=== PATIENT | male | born 1945 | race Caucasian/White ===

== ENCOUNTER 2020-07-16 06:31 | Day surgery (SDC) | payer MEDICARE ==
[2020-07-16] MEDS ORDERED: BUPIVACAINE 0.5% VIAL IJ ONE (06:32)
[2020-07-16] MEDS ORDERED: Decadron 4 MG INJ IV ONE (06:32)
[2020-07-16] MEDS ORDERED: Ketamine HCl 50 MG/ML ONE (07:54)
[2020-07-16] MEDS ORDERED: DIPRIVAN 200 MG/20 ML IV ONE (07:54)
[2020-07-16] MEDS ORDERED: Lactated Ringers 1,000 ML IV ONE (14:30)
--- NOTE | 2020-07-17 15:44 | XRAY ---
Indication: Right C2-C4 MBB. Intraoperative fluoroscopy provided for 16 seconds. 2 digital spot images submitted for interpretation demonstrates posterior needle tips projecting over the expected right C2-C4 nerve roots. Correlate with intraoperative findings/report.
--- NOTE | 2020-07-17 15:44 | XRAY ---
16 seconds fluoroscopy time in surgery for right C2-C4 MBB.
== END 2020-07-16 08:38 | disposition home or self-care (01) ==
LOC: SDC-PAIN 06:31
PROVIDERS: ATTEND Psychiatry & Neurology Pain Medicine
DX: M47.812 Spondylosis without myelopathy or radiculopathy, cervical region (principal); I10 Essential (primary) hypertension; K21.9 Gastro-esophageal reflux disease without esophagitis; Z79.899 Other long term (current) drug therapy
CPT/HCPCS: 64490; 64491; 72020; 77002; J1100; J2704

== ENCOUNTER 2020-09-02 02:26 | Observation (INO) | payer MEDICARE ==
[2020-09-02 02:55] LABS: Absolute Neutrophil Ct (ANC) 15.26 (1.4-6.9); BASOPHIL % 0.2 % (0.0-0.4); Basophil (Absolute #) 0.04 (0-0.4); Eosinophil % 0.5 % (0.00-5.0); Eosinophil (Absolute #) 0.08 (0-0.5); Hematocrit 42.7 % (42-50); Hemoglobin 13.9 gm/dl (12.5-18.0); Lymphocyte (Absolute #) 0.98 (1.0-4.6); Lymphocytes % 5.7 % (24.0-44.0); Mean Cell Volume 87.5 fl (78-100); Mean Corpuscular Hemoglobin 28.5 pg (26-32); Mean Corpuscular Hgb Concent. 32.6 g/dl (32-36); Mean Platelet Volume 10.9 fl (7.5-11.0); Monocyte (Absolute #) 0.71 (0.0-1.3); Monocytes % 4.2 % (0.0-12.0); Neutrophil % 89.4 % (36.0-66.0); Platelet Count 230 K/mm3 (150-450); Red Blood Count 4.88 M/mm3 (4.1-5.6); Red Cell Distribution Width 13.4 % (11.5-14.0); White Blood Count 17.1 K/mm3 (4.0-10.5)
[2020-09-02] MEDS ORDERED: SUBLIMAZE 100 MCG/2 ML IV ONE (02:55)
[2020-09-02] MEDS ORDERED: Zofran 4 MG/2 ML VIAL ONE (02:56)
[2020-09-02] MEDS ORDERED: Zofran 4 MG/2 ML VIAL IV ONE (02:56)
[2020-09-02 02:57] LABS: Appearance SLIGHTLY CLOUDY (CLEAR); Bilirubin NEGATIVE (NEGATIVE); Blood NEGATIVE Ery/ul (0-5); Glucose NEGATIVE (NEGATIVE); Ketones SMALL (NEGATIVE); Leukocyte Esterase NEGATIVE (NEGATIVE); Mucus SLIGHT /HPF (NEGATIVE); Nitrite NEGATIVE (NEGATIVE); Protein,Urine Dip 30 (Negative); Specific Gravity 1.023 (1.005-1.025); Urobilinogen 2 mg/dL (0-1)
[2020-09-02] MEDS ORDERED: Sodium Chloride 0.9% 1000 ML 1,000 ML ONE (02:58)
[2020-09-02] MEDS ORDERED: SUBLIMAZE 100 MCG/2 ML ONE (02:58)
--- NOTE | 2020-09-02 03:02 | ERPHSYRPT ---
- History of Present Illness Historian: patient Patient Subjective Stated Complaint: Patient states " I started having pretty bad ABD pain yesterday around 1600. I have tried tums and some alkaseltzer and it chavarria't helped with the pain and now I am just miserable". Triage Nursing Assessment: . Physician History: 75 yo wm w diffuse abdominal pain x 11hrs. Pain is 7/10 but has been up to a 10. He feels distended and describes the pain as a fullness. Pt has been nauseated and has vomited x4. He denies chest pain/diarrhea/hematemesis/melena/hematochezia/dysuria/hematuria. Timing/Duration: other (11hrs) Quality: fullness Abdominal Pain Onset Location: generalized abdomen Pain Radiation: no radiation, shoulder Severity of Pain-Current: severe Modifying Factors: Improves With: nothing Associated Symptoms: loss of appetite, nausea, vomiting, other, No back, No chest pain, No diaphoresis, No diarrhea, No fever/chills, No fatigue, No headache, No heartburn, No neck pain, No rash, No shortness of breath, No syncope, No testicular pain, No weakness Previous symptoms: no prior history Allergies/Adverse Reactions: No Known Drug Allergies Allergy (Unverified 09/02/20 03:09) Home Medications: PANTOPRAZOLE 40 mg Tablet [Protonix 40MG Tablet] 40 mg PO DAILY 09/02/20 [History] lisinopriL [Lisinopril] 5 mg PO DAILY 09/02/20 [History] Hx Tetanus, Diphtheria Vaccination/Date Given: Yes Hx Influenza Vaccination/Date Given: Yes Hx Pneumococcal Vaccination/Date Given: Yes Immunizations Up to Date: Yes Travel Risk - International Travel Have you traveled outside of the country in past 3 weeks: No - Coronavirus Screening Are you exhibiting any of the following symptoms?: No Close contact with a COVID-19 positive Pt in past 14-21 Days: No - Vaccine Status Have you recieved a Covid-19 vaccination: Yes 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 - Vaccination Dates Date of 2cond Vaccination (if applicable): 06/16/20 - Review of Systems Constitutional: No Symptoms, Chills Eyes: No Symptoms Ears, Nose, & Throat: No Symptoms Respiratory: No Symptoms, Cough Cardiac: No Symptoms Abdominal/Gastrointestinal: Abdominal Pain, Nausea, Vomiting, Appetite Changes, No Diarrhea, No Constipation, No Hematemesis, No Hematochezia, No Melena, No Dysphagia Genitourinary Symptoms: No Symptoms Musculoskeletal: No Symptoms Skin: No Symptoms Neurological: No Symptoms Psychological: No Symptoms Endocrine: No Symptoms Hematologic/Lymphatic: No Symptoms Immunological/Allergic: No Symptoms - Past Medical History Neurological History: No Pertinent History ENT History: Cataracts Cardiac History: Hypertension Respiratory History: Bronchitis, COPD Endocrine Medical History: No Pertinent History Musculoskeletal History: Arthritis GI Medical History: GERD History: No Pertinent History Psycho-Social History: No Pertinent History Male Reproductive Disorders: No Pertinent History - Past Surgical History Past Surgical History: Yes Neuro Surgical History: No Pertinent History Cardiac: No Pertinent History Respiratory: No Pertinent History Gastrointestinal: Hernia Repair Genitourinary: No Pertinent History Musculoskeletal: Orthopedic Surgery Male Surgical History: No Pertinent History - Social History Smoking Status: Former smoker Exposure to second hand smoke: No Drug Use: none Patient Lives Alone: No Significant Family History: no pertinent family hx - Nursing Vital Signs Nursing Vital Signs: Initial Vital Signs Temperature 98.0 F 09/02/20 02:35 Pulse Rate 57 L 09/02/20 02:35 Respiratory Rate 18 09/02/20 02:35 Blood Pressure 146/88 09/02/20 02:35 O2 Sat by Pulse Oximetry 99 09/02/20 02:35 Pain Scale Pain Intensity 1 - Physical Exam General Appearance: mild distress Eye Exam: PERRL/EOMI, eyes nml inspection Ears, Nose, Throat Exam: normal ENT inspection, TMs normal, pharynx normal, mo ist mucous membranes Neck Exam: normal inspection, non-tender, supple, full range of motion, No meningismus, No mass, No Brudzinski, No Kernig's, No carotid bruit Respiratory Exam: normal breath sounds, airway intact, No lungs clear, No respiratory distress Cardiovascular Exam: regular rate/rhythm, normal heart sounds, normal peripheral pulses, No murmur Gastrointestinal/Abdomen Exam: soft, tenderness (Diffuse ttp/Greatest RLQ/No guarding/No rebound) Back Exam: normal inspection, normal range of motion, CVA tenderness Extremity Exam: normal inspection, normal range of motion Neurologic Exam: alert, oriented x 3, cooperative, margin trimmer II-XII nml as tested, normal mood/affect, nml station & gait, sensation nml, No motor deficits, No sensory deficit Skin Exam: normal color, warm, dry, No rash Lymphatic Exam: No adenopathy SpO2 Interpretation: normal SpO2: 99 O2 Delivery: Room Air - Course Nursing assessment & vital signs reviewed: Yes EKG Interpreted by Me: RATE (Sinus Isael/R55/Prolonged QT/Poor R wave progression V2-V3/No acute ST changes) Ordered Tests: Active Orders 24 hr Category Date Time Status Bedrest ROUTINE Activity 09/02/20 05:23 Ordered Code Status Order ROUTINE Care 09/02/20 05:22 Ordered EKG-ER Only STAT Care 09/02/20 02:42 Active Fall Protocol ROUTINE Care 09/02/20 05:23 Ordered IV Care Q6H Care 09/02/20 05:22 Ordered Vital Signs Q4H Care 09/02/20 05:22 Ordered Consult Surgery ROUTINE Cons 09/02/20 05:22 Ordered NPO Diet 09/02/20 05:23 Ordered ABDOMEN AND PELVIS W/0 CONTRAS [CT] Stat Exams 09/02/20 03:33 Taken AMYLASE Stat Lab 09/02/20 02:50 Completed CBC W DIFF Stat Lab 09/02/20 02:50 Completed CMP Stat Lab 09/02/20 02:50 Completed LIPASE Stat Lab 09/02/20 02:50 Completed Lactic Acid Stat Lab 09/02/20 02:49 Completed Lactic Acid Stat Lab 09/02/20 04:52 Received TROPONIN Q3H Lab 09/02/20 02:50 Completed TROPONIN Q3H Lab 09/02/20 05:45 Ordered TROPONIN Q3H Lab 09/02/20 08:45 Ordered TROPONIN Q3H Lab 09/02/20 11:45 Ordered TROPONIN Q3H Lab 09/02/20 14:45 Ordered UA W/RFX UR CULTURE Stat Lab 09/02/20 02:53 Completed Transfer Order Routine Transfer 09/02/20 Ordered Medication Summary Generic Name Dose Route Start Last Admin Trade Name Freq PRN Reason Stop Dose Admin Hydromorphone HCl 0.5 mg 09/02/20 05:22 Hydromorphone 1 Mg/Ml Injection IV 09/07/20 05:21 Q4H PRN PRN PAIN Sodium Chloride 1,000 mls @ 100 mls/hr 09/02/20 05:30 Sodium Chloride 0.9% 1000 Ml IV 10/02/20 05:29 .Q10H ROSALVA Ondansetron HCl 4 mg 09/02/20 05:22 Zofran 4 Mg/2 Ml Vial IV 10/02/20 05:21 Q6H PRN PRN NAUSEA/VOMITING Pantoprazole Sodium 40 mg 09/02/20 10:00 Protonix 40 Mg Iv IV 10/02/20 09:59 Q24H10 ROSALVA Discontinued Medications Generic Name Dose Route Start Last Admin Trade Name Freq PRN Reason Stop Dose Admin Fentanyl Citrate 50 mcg 09/02/20 02:55 09/02/20 03:11 Sublimaze 100 Mcg/2 Ml IV 09/02/20 02:56 50 mcg STAT ONE Administration Fentanyl Citrate Confirm 09/02/20 02:58 Sublimaze 100 Mcg/2 Ml Administered 09/02/20 02:59 Dose 100 mcg .ROUTE .STK-MED ONE Sodium Chloride Confirm 09/02/20 02:58 Sodium Chloride 0.9% 1000 Ml Administered 09/02/20 02:59 Dose 1,000 mls @ ud .ROUTE .STK-MED ONE Sodium Chloride 1,000 mls @ 999 mls/hr 09/02/20 03:13 09/02/20 03:14 Sodium Chloride 0.9% 1000 Ml IV 09/02/20 04:13 999 mls/hr .Q1H1M STA Administration Ondansetron HCl 4 mg 09/02/20 02:56 09/02/20 03:12 Zofran 4 Mg/2 Ml Vial IV 09/02/20 02:57 4 mg STAT ONE Administration Ondansetron HCl Confirm 09/02/20 02:56 Zofran 4 Mg/2 Ml Vial Administered 09/02/20 02:57 Dose 4 mg .ROUTE .STK-MED ONE Lab/Rad Data: Laboratory Result Diagrams 09/02/20 02:50 09/02/20 02:50 Laboratory Results 09/02/20 09/02/20 09/02/20 Range/Units 02:53 02:50 02:50 WBC (4.0-10.5) K/mm3 RBC (4.1-5.6) M/mm3 Hgb (12.5-18.0) gm/dl Hct (42-50) % MCV (78-100) fl MCH (26-32) pg MCHC (32-36) g/dl RDW (11.5-14.0) % Plt Count (150-450) K/mm3 MPV (7.5-11.0) fl Gran % (36.0-66.0) % Eos # (Auto) (0-0.5) Absolute Lymphs (auto) (1.0-4.6) Absolute Monos (auto) (0.0-1.3) Lymphocytes % (24.0-44.0) % Monocytes % (0.0-12.0) % Eosinophils % (0.00-5.0) % Basophils % (0.0-0.4) % Absolute Granulocytes (1.4-6.9) Basophils # (0-0.4) Sodium 138 (137-145) mmol/L Potassium 4.0 (3.5-5.1) mmol/L Chloride 101 (98-107) mmol/L Carbon Dioxide 27 (22-30) mmol/L Anion Gap 14.0 (5-15) MEQ/L BUN 34 H (9-20) mg/dL Creatinine 1.68 H (0.66-1.25) mg/dL Estimated GFR 42.3 ML/MIN Glucose 143 H (74-106) mg/dL Lactic Acid (0.4-2.0) Calcium 9.9 (8.4-10.2) mg/dL Total Bilirubin 1.30 (0.2-1.3) mg/dL AST 26 (17-59) U/L ALT 17 (0-50) U/L Alkaline Phosphatase 138 H (38-126) U/L Troponin I < 0.012 (0.000-0.034) ng/mL Serum Total Protein 7.0 (6.3-8.2) g/dL Albumin 4.5 (3.5-5.0) g/dL Amylase 46 (30-110) U/L Lipase 104 (23-300) U/L Urine Color YELLOW (YELLOW) Urine Appearance SLIGHTLY CLOUDY (CLEAR) Urine pH 5.0 (5-6) Ur Specific Purdin 1.023 (1.005-1.025) Urine Protein 30 (Negative) Urine Ketones SMALL (NEGATIVE) Urine Blood NEGATIVE (0-5) Loc/ul Urine Nitrite NEGATIVE (NEGATIVE) Urine Bilirubin NEGATIVE (NEGATIVE) Urine Urobilinogen 2 (0-1) mg/dL Ur Leukocyte Esterase NEGATIVE (NEGATIVE) Urine WBC (Auto) 3-5 (0-5) /HPF Urine RBC (Auto) NONE (0-2) /HPF U Epithel Cells (Auto) NONE (FEW) /HPF Urine Bacteria (Auto) NONE (NEGATIVE) /HPF Urine Mucus (Auto) SLIGHT (NEGATIVE) /HPF Urine Culture Reflexed NO (NO) Urine Glucose NEGATIVE (NEGATIVE) mg/dL 09/02/20 09/02/20 Range/Units 02:50 02:49 WBC 17.1 H (4.0-10.5) K/mm3 RBC 4.88 (4.1-5.6) M/mm3 Hgb 13.9 (12.5-18.0) gm/dl Hct 42.7 (42-50) % MCV 87.5 (78-100) fl MCH 28.5 (26-32) pg MCHC 32.6 (32-36) g/dl RDW 13.4 (11.5-14.0) % Plt Count 230 (150-450) K/mm3 MPV 10.9 (7.5-11.0) fl Gran % 89.4 H (36.0-66.0) % Eos # (Auto) 0.08 (0-0.5) Absolute Lymphs (auto) 0.98 L (1.0-4.6) Absolute Monos (auto) 0.71 (0.0-1.3) Lymphocytes % 5.7 L (24.0-44.0) % Monocytes % 4.2 (0.0-12.0) % Eosinophils % 0.5 (0.00-5.0) % Basophils % 0.2 (0.0-0.4) % Absolute Granulocytes 15.26 H (1.4-6.9) Basophils # 0.04 (0-0.4) Sodium (137-145) mmol/L Potassium (3.5-5.1) mmol/L Chloride (98-107) mmol/L Carbon Dioxide (22-30) mmol/L Anion Gap (5-15) MEQ/L BUN (9-20) mg/dL Creatinine (0.66-1.25) mg/dL Estimated GFR ML/MIN Glucose (74-106) mg/dL Lactic Acid 3.0 H (0.4-2.0) Calcium (8.4-10.2) mg/dL Total Bilirubin (0.2-1.3) mg/dL AST (17-59) U/L ALT (0-50) U/L Alkaline Phosphatase (38-126) U/L Troponin I (0.000-0.034) ng/mL Serum Total Protein (6.3-8.2) g/dL Albumin (3.5-5.0) g/dL Amylase (30-110) U/L Lipase (23-300) U/L Urine Color (YELLOW) Urine Appearance (CLEAR) Urine pH (5-6) Ur Specific Purdin (1.005-1.025) Urine Protein (Negative) Urine Ketones (NEGATIVE) Urine Blood (0-5) Loc/ul Urine Nitrite (NEGATIVE) Urine Bilirubin (NEGATIVE) Urine Urobilinogen (0-1) mg/dL Ur Leukocyte Esterase (NEGATIVE) Urine WBC (Auto) (0-5) /HPF Urine RBC (Auto) (0-2) /HPF U Epithel Cells (Auto) (FEW) /HPF Urine Bacteria (Auto) (NEGATIVE) /HPF Urine Mucus (Auto) (NEGATIVE) /HPF Urine Culture Reflexed (NO) Urine Glucose (NEGATIVE) mg/dL - Progress Progress: improved Progress Note: 09/02/20 05:20 Pain greatly improved w 50umg Iv Fentanyl/4mg IV Zofran Admit per Dr. Mackay Discussed with : Jason Will see patient in: hospital (observation) Counseled pt/family regarding: lab results, diagnosis, rad results - Departure Departure Disposition: Observation Clinical Impression: SBO (small bowel obstruction) Condition: Stable Critical Care Time: No Referrals: ALEN MACKAY MD [Primary Care Provider] -
[2020-09-02] MEDS ORDERED: Sodium Chloride 0.9% 1000 ML 1,000 ML IV STA (03:13)
[2020-09-02 03:15] LABS: ALBUMIN 4.5 g/dL (3.5-5.0); BILIRUBIN,TOTAL 1.3 mg/dL (0.2-1.3); Calcium 9.9 mg/dL (8.4-10.2); Creatinine 1 1.68 mg/dL (0.66-1.25); EST GLOMERULAR FILTRATION RATE 42.3 ML/MIN
[2020-09-02] MEDS ORDERED: Hydromorphone 1 mg/ml Injection IV ONE (05:29)
[2020-09-02 06:35] LABS: INFLUENZA A NEGATIVE (NEGATIVE); INFLUENZA B NEGATIVE (NEGATIVE); RESPIRATORY SYNCTIAL VIRUS NEGATIVE (Negative)
--- NOTE | 2020-09-02 09:02 | XRAY ---
Indication: Abdomen pain, nausea, vomiting, diarrhea. Multiple contiguous axial images obtained through the abdomen and pelvis without contrast. Comparison: None Lung bases demonstrates mild dependent atelectasis without infiltrate or effusion. Heart not enlarged. Stomach is mildly fluid distended. Small bowel loops are also fluid distended with fluid leveling up to 2.8 cm in diameter. Transition point right lower quadrant favoring partial distal small bowel obstruction. There is distal colonic bowel gas. Small perihepatic and tiny pelvic free fluid presumed reactive. No walled off fluid collection or free air. Incidental sigmoid diverticulosis, 7 mm hepatic cyst/hemangioma, and splenic calcified granulomas. Remaining liver, gallbladder, pancreas, spleen, adrenal glands, kidneys, ureters, and bladder are unremarkable for noncontrast exam. Mild scattered aortoiliac calcifications without AAA. Osseous structures intact with mild/moderate multilevel thoracolumbar degenerative spondylosis and mild dextroscoliosis centered at L3. Impression: 1. CT findings as detailed favoring partial small bowel obstruction. Small free fluid presumed reactive. 2. Incidental sigmoid diverticulosis, hepatic cyst/hemangioma, chronic bony findings, and old granulomatous disease. Comment: Preliminary interpretation was made by [facility]. No critical discrepancy.
[2020-09-02] MEDS: Sodium Chloride 0.9% 1000 ML 1,000 ML IV SCH ×2 (09:16→17:53)
[2020-09-02] MEDS: PROTONIX 40 MG IV IV SCH (09:16)
[2020-09-02] MEDS: Hydromorphone 1 mg/ml Injection IV PRN ×3 (11:07→20:06)
[2020-09-02] MEDS: Zofran 4 MG/2 ML VIAL IV PRN (19:44)
[2020-09-02] MEDS: FLAGYL 500 MG IVPB 500 MG/100 ML BAG IV SCH (23:25)
[2020-09-03] MEDS: Zofran 4 MG/2 ML VIAL IV PRN ×4 (01:32→18:59)
[2020-09-03] MEDS: Hydromorphone 1 mg/ml Injection IV PRN ×4 (01:32→19:00)
[2020-09-03] MEDS: Sodium Chloride 0.9% 1000 ML 1,000 ML IV SCH ×2 (01:32→14:45)
[2020-09-03 05:20] LABS: Absolute Neutrophil Ct (ANC) 11.64 (1.4-6.9); BASOPHIL % 0.3 % (0.0-0.4); Basophil (Absolute #) 0.04 (0-0.4); Eosinophil % 1.3 % (0.00-5.0); Eosinophil (Absolute #) 0.17 (0-0.5); Hematocrit 38.6 % (42-50); Hemoglobin 12.2 gm/dl (12.5-18.0); Lymphocyte (Absolute #) 0.75 (1.0-4.6); Lymphocytes % 5.6 % (24.0-44.0); Mean Cell Volume 89.1 fl (78-100); Mean Corpuscular Hemoglobin 28.2 pg (26-32); Mean Corpuscular Hgb Concent. 31.6 g/dl (32-36); Mean Platelet Volume 11.3 fl (7.5-11.0); Monocyte (Absolute #) 0.89 (0.0-1.3); Monocytes % 6.6 % (0.0-12.0); Neutrophil % 86.2 % (36.0-66.0); Platelet Count 202 K/mm3 (150-450); Red Blood Count 4.33 M/mm3 (4.1-5.6); Red Cell Distribution Width 13.6 % (11.5-14.0); White Blood Count 13.5 K/mm3 (4.0-10.5)
[2020-09-03 05:38] LABS: ALBUMIN 3.6 g/dL (3.5-5.0); ANION GAP 14.9 MEQ/L (5-15); BILIRUBIN,TOTAL 1.1 mg/dL (0.2-1.3); Calcium 8.3 mg/dL (8.4-10.2); Creatinine 1 1.3 mg/dL (0.66-1.25); EST GLOMERULAR FILTRATION RATE 56.9 ML/MIN; Potassium 4.2 mmol/L (3.5-5.1); Total Protein 5.9 g/dL (6.3-8.2)
[2020-09-03] MEDS: FLAGYL 500 MG IVPB 500 MG/100 ML BAG IV SCH ×3 (06:08→17:46)
--- NOTE | 2020-09-03 08:19 | CONS ---
CONSULT DATE: 09/02/2020 HISTORY: Apparently he came in with symptoms that he had since 0200 hours. However in the afternoon he had some generalized abdominal aches and pains, not relieved with Liudmila-Goodman. He had some nausea, had some vomiting. He did have a small bowel movement he said. He has had some belching today. He denies any personal or family history of inflammatory bowel disease. He denies any known unusual food. PAST MEDICAL HISTORY: Hypertension, chronic obstructive pulmonary disease, bronchitis, arthritis, reflux in the past. He had history of small hiatal hernia in the past. PAST SURGICAL HISTORY: He had some orthopedic surgeries. Denies any abdominal surgeries in the past. He had some cataracts in the past. He had upper endoscopy in the past. Colonoscopy in the past couple of years or so. HOME MEDICATIONS: He has been on some pantoprazole, lisinopril. ALLERGIES: NKDA. FAMILY HISTORY: Negative for inflammatory bowel disease. SOCIAL HISTORY: Former smoker. LAB DATA AND TESTS: Liver function tests were unremarkable. Lipase is normal. White count last night was 17. CT scan showed some mild distention of the stomach. He had some mild liquid-filled small bowel loops. He did have bowel gas in the colon, question whether he could have early partial obstruction. REVIEW OF SYSTEMS: Fourteen systems reviewed. Negative or noncontributory as above and per preadmission questionnaire. He has been here all this time and he is admitted for question of partial obstruction but he has not had an NG during all this time. PHYSICAL EXAMINATION: GENERAL: No acute distress. HEENT: Sclera nonicteric. NECK: No JVD. CHEST: Equal excursion, nonlabored breathing. ABDOMEN: Very soft. He had some mild distention. No rebound. No guarding. No peritoneal sign. He complains of some aches but he does not seem to have any significant tenderness on my exam. EXTREMITIES: No cyanosis. NEURO: Alert, moving extremities grossly symmetrically. PSYCH: Appropriate mood and affect. IMPRESSION: Some abdominal aches, nausea. He had some emesis yesterday and did have a small bowel movement. He denies any prior abdominal surgery. He does not have a good reason to have any EC (eosinophilic colitis) disease. He is afebrile, vital signs stable. Whether this is some sort of enteritis or early colitis or diverticular episode which is unusual with early partial obstruction, either way no emergent surgery necessary at this time. He has not had a good trial of NG decompression, bowel rest at this point. Since he also had elevated white count on admission would start him on some empiric antibiotics if this is sort of infectious or bug-type etiology might improve quicker. Otherwise the place NG, bowel rest and will check some films tomorrow. No emergent surgery necessary, continue medical management for now.
--- NOTE | 2020-09-03 08:27 | PCM.HP ---
History of Present Illness - Chief Complaint Chief Complaint: Small Bowel Obstruction Date: 09/02/20 History of Present Illness: is a 75 year old male.diffuse abdominal pain x 11hrs. Pain is 7/10 but has been up to a 10. He feels distended and describes the pain as a fullness. Pt has been nauseated and has vomited x4. He denies chest pain/diarrhea/hematemesis/melena/hematochezia/dysuria/hematuria. Timing/Duration: other (11hrs) Quality: fullness Abdominal Pain Onset Location: generalized abdomen Pain Radiation: no radiation, shoulder Severity of Pain-Current: severe Modifying Factors: Improves With: nothing Associated Symptoms: loss of appetite, nausea, vomiting, other, No back, No chest pain, No diaphoresis, No diarrhea, No fever/chills, No fatigue, No headache, No heartburn, No neck pain, No rash, No shortness of breath, No syncope, No testicular pain, No weakness Previous symptoms: no prior history - Review of Systems Constitutional: No Fever, No Chills Eyes: No Symptoms Ears, Nose, & Throat: No Symptoms Respiratory: No Cough, No Short Of Breath Cardiac: No Chest Pain, No Edema, No Syncope Abdominal/Gastrointestinal: Abdominal Pain, Vomiting, No Nausea, No Diarrhea Genitourinary Symptoms: No Dysuria Musculoskeletal: No Back Pain, No Neck Pain Skin: No Rash Neurological: No Dizziness, No Focal Weakness, No Sensory Changes Psychological: No Symptoms Endocrine: No Symptoms Hematologic/Lymphatic: No Symptoms Immunological/Allergic: No Symptoms Medications & Allergies Home Medications: Home Medication List Acetaminophen 500 mg [Tylenol Extra Strength 500 mg] 1,000 mg PO Q6HPRN PRN 09/02/20 [History Confirmed 09/02/20] Albuterol 2.5 mg/3 ml Neb [Proventil 2.5 mg/3 ml Neb] 2.5 mg IH DAILY 09/02/20 [History Confirmed 09/02/20] PANTOPRAZOLE 40 mg Tablet [Protonix 40MG Tablet] 40 mg PO DAILY 09/02/20 [History Confirmed 09/02/20] Saw [place] 320 mg PO BID 09/02/20 [History Confirmed 09/02/20] Umeclidinium Brm/Vilanterol Tr [Anoro Ellipta 62.5-25 Mcg INH] 1 each IH DAILY 09/02/20 [History Confirmed 09/02/20] lisinopriL [Lisinopril] 5 mg PO BID 09/02/20 [History Confirmed 09/02/20] Allergies/Adverse Reactions: Allergies Allergy/AdvReac Type Severity Reaction Status Date / Time No Known Drug Allergies Allergy Verified 09/02/20 08:32 - Past Medical History Past Medical History: Yes Neurological History: No Pertinent History ENT History: Cataracts Cardiac History: Hypertension Respiratory History: COPD Endocrine Medical History: No Pertinent History Musculoskelatal History: Arthritis GI Medical History: GERD, Polyps History: No Pertinent History Pyscho-Social History: No Pertinent History Male Reproductive Disorders: Prostate Problems - Past Surgical History Past Surgical History: Yes Neuro Surgical History: No Pertinent History Cardiac History: No Pertinent History Respiratory Surgery: No Pertinent History GI Surgical History: Hernia Repair Genitourinary Surgical Hx: No Pertinent History Musculskeletal Surgical Hx: Orthopedic Surgery Male Surgical History: No Pertinent History - Social History Smoking Status: Former smoker Exposure to second hand smoke: No Alcohol: None Drug Use: none Significant Family History: no pertinent family hx - Physical Exam Vital Signs: Vital Signs - 24 hr Temp Pulse Resp BP Pulse Ox 09/03/20 06:52 98.3 F 72 16 129/79 98 09/03/20 04:00 98.0 F 102 H 18 127/86 96 09/02/20 23:22 98.6 F 77 19 139/95 93 L 09/02/20 20:00 98.3 F 61 19 132/87 96 09/02/20 16:00 98.4 F 66 18 160/96 98 09/02/20 12:00 99.1 F 70 16 141/68 98 General Appearance: no apparent distress, alert Neurologic Exam: alert, oriented x 3, cooperative, normal mood/affect, nml cerebellar function, nml station & gait, sensation nml, No motor deficits Eye Exam: PERRL/EOMI, eyes nml inspection Ears, Nose, Throat Exam: normal ENT inspection, TMs normal, pharynx normal, moist mucous membranes Neck Exam: normal inspection, non-tender, supple, full range of motion Respiratory Exam: normal breath sounds, lungs clear, No respiratory distress Cardiovascular Exam: regular rate/rhythm, normal heart sounds, normal peripheral pulses Gastrointestinal/Abdomen Exam: tenderness, distention, No mass Back Exam: normal inspection, normal range of motion, No CVA tenderness, No vertebral tenderness Extremity Exam: normal inspection, normal range of motion, pelvis stable Skin Exam: normal color, warm, dry, No rash Lymphatic Exam: No adenopathy Results - Labs Lab/Micro Results: Lab Results-Last 24 Hours 09/02/20 09/02/20 09/02/20 Range/Units 09:08 11:59 14:38 WBC (4.0-10.5) K/mm3 RBC (4.1-5.6) M/mm3 Hgb (12.5-18.0) gm/dl Hct (42-50) % MCV (78-100) fl MCH (26-32) pg MCHC (32-36) g/dl RDW (11.5-14.0) % Plt Count (150-450) K/mm3 MPV (7.5-11.0) fl Gran % (36.0-66.0) % Eos # (Auto) (0-0.5) Absolute Lymphs (auto) (1.0-4.6) Absolute Monos (auto) (0.0-1.3) Lymphocytes % (24.0-44.0) % Monocytes % (0.0-12.0) % Eosinophils % (0.00-5.0) % Basophils % (0.0-0.4) % Absolute Granulocytes (1.4-6.9) Basophils # (0-0.4) Sodium (137-145) mmol/L Potassium (3.5-5.1) mmol/L Chloride (98-107) mmol/L Carbon Dioxide (22-30) mmol/L Anion Gap (5-15) MEQ/L BUN (9-20) mg/dL Creatinine (0.66-1.25) mg/dL Estimated GFR ML/MIN Glucose (74-106) mg/dL Calcium (8.4-10.2) mg/dL Total Bilirubin (0.2-1.3) mg/dL AST (17-59) U/L ALT (0-50) U/L Alkaline Phosphatase (38-126) U/L Troponin I < 0.012 < 0.012 < 0.012 (0.000-0.034) ng/mL Serum Total Protein (6.3-8.2) g/dL Albumin (3.5-5.0) g/dL 09/03/20 09/03/20 Range/Units 04:33 04:33 WBC 13.5 H (4.0-10.5) K/mm3 RBC 4.33 (4.1-5.6) M/mm3 Hgb 12.2 L (12.5-18.0) gm/dl Hct 38.6 L (42-50) % MCV 89.1 (78-100) fl MCH 28.2 (26-32) pg MCHC 31.6 L (32-36) g/dl RDW 13.6 (11.5-14.0) % Plt Count 202 (150-450) K/mm3 MPV 11.3 H (7.5-11.0) fl Gran % 86.2 H (36.0-66.0) % Eos # (Auto) 0.17 (0-0.5) Absolute Lymphs (auto) 0.75 L (1.0-4.6) Absolute Monos (auto) 0.89 (0.0-1.3) Lymphocytes % 5.6 L (24.0-44.0) % Monocytes % 6.6 (0.0-12.0) % Eosinophils % 1.3 (0.00-5.0) % Basophils % 0.3 (0.0-0.4) % Absolute Granulocytes 11.64 H (1.4-6.9) Basophils # 0.04 (0-0.4) Sodium 138 (137-145) mmol/L Potassium 4.2 (3.5-5.1) mmol/L Chloride 106 (98-107) mmol/L Carbon Dioxide 21 L (22-30) mmol/L Anion Gap 14.9 (5-15) MEQ/L BUN 31 H (9-20) mg/dL Creatinine 1.30 H (0.66-1.25) mg/dL Estimated GFR 56.9 ML/MIN Glucose 105 (74-106) mg/dL Calcium 8.3 L D (8.4-10.2) mg/dL Total Bilirubin 1.10 (0.2-1.3) mg/dL AST 21 (17-59) U/L ALT 12 (0-50) U/L Alkaline Phosphatase 101 (38-126) U/L Troponin I (0.000-0.034) ng/mL Serum Total Protein 5.9 L (6.3-8.2) g/dL Albumin 3.6 (3.5-5.0) g/dL - Radiology Impressions Radiology Exams & Impressions: Radiology Procedures Category Date Time Status ABDOMEN 2 VIEW Routine Exams 09/03/20 11:00 Stop Req ABDOMEN AND PELVIS W/0 CONTRAS [CT] Stat Exams 09/02/20 03:33 Completed CHEST 1 VIEW (PORTABLE) Stat Exams 09/02/20 23:42 Taken Assessment/Plan (1) SBO (small bowel obstruction) Current Visit: Yes Status: Acute Assessment & Plan: Chief Complaint Diagnosis Small Bowel Obstruction Allergies Allergy/AdvReac Type Severity Reaction Status Date / Time No Known Drug Allergies Allergy Verified 09/02/20 08:32 Vital Signs (Last 24 hours) Temp Pulse Resp BP Pulse Ox 09/03/20 06:52 98.3 F 72 16 129/79 98 09/03/20 04:00 98.0 F 102 H 18 127/86 96 09/02/20 23:22 98.6 F 77 19 139/95 93 L 09/02/20 20:00 98.3 F 61 19 132/87 96 09/02/20 16:00 98.4 F 66 18 160/96 98 09/02/20 12:00 99.1 F 70 16 141/68 98 Home Medications Medication Instructions Recorded Confirmed Last Taken Type Acetaminophen 500 mg [Tylenol 1,000 mg PO Q6HPRN PRN 09/02/20 09/02/20 Unknown History Extra Strength 500 mg] Albuterol 2.5 mg/3 ml Neb 2.5 mg IH DAILY 09/02/20 09/02/20 09/02/20 History [Proventil 2.5 mg/3 ml Neb] 0800 PANTOPRAZOLE 40 mg Tablet 40 mg PO DAILY 09/02/20 09/02/20 09/01/20 History [Protonix 40MG Tablet] [place] 320 mg PO BID 09/02/20 09/02/20 09/01/20 08:00 History Umeclidinium Brm/Vilanterol Tr 1 each IH DAILY 09/02/20 09/02/20 09/01/20 History [Anoro Ellipta 62.5-25 Mcg INH] 0800 lisinopriL [Lisinopril] 5 mg PO BID 09/02/20 09/02/20 08/31/20 History Current Medications Generic Name Dose Route Start Last Admin Trade Name Lewisq PRN Reason Stop Dose Admin Hydromorphone HCl 0.5 mg 09/02/20 05:22 09/03/20 07:30 Hydromorphone 1 Mg/Ml Injection IV 09/07/20 05:21 0.5 mg Q4H PRN PRN Administration PAIN Sodium Chloride 1,000 mls @ 100 mls/hr 09/02/20 05:30 09/03/20 01:32 Sodium Chloride 0.9% 1000 Ml IV 10/02/20 05:29 100 mls/hr .Q10H ROSALVA Administration Metronidazole 500 mg in 100 mls @ 200 mls/hr 09/03/20 00:00 09/03/20 06:08 Flagyl 500 Mg Ivpb IV 10/03/20 00:00 200 mls/hr Q6HT ROSALVA Administration Levofloxacin/Dextrose 500 mg in 100 mls @ 100 mls/hr 09/03/20 22:00 Levofloxacin 500mg/100ml D5w IV 10/03/20 21:59 Q24H22 ROSALVA Ondansetron HCl 4 mg 09/02/20 05:22 09/03/20 07:31 Zofran 4 Mg/2 Ml Vial IV 10/02/20 05:21 4 mg Q6H PRN PRN Administration NAUSEA/VOMITING Pantoprazole Sodium 40 mg 09/02/20 10:00 09/02/20 09:16 Protonix 40 Mg Iv IV 10/02/20 09:59 40 mg Q24H10 ROSALVA Administration Discontinued Medications Generic Name Dose Route Start Last Admin Trade Name Lewisq PRN Reason Stop Dose Admin Fentanyl Citrate 50 mcg 09/02/20 02:55 09/02/20 03:11 Sublimaze 100 Mcg/2 Ml IV 09/02/20 02:56 50 mcg STAT ONE Administration Fentanyl Citrate Confirm 09/02/20 02:58 Sublimaze 100 Mcg/2 Ml Administered 09/02/20 02:59 Dose 100 mcg .ROUTE .STK-MED ONE Hydromorphone HCl 0.5 mg 09/02/20 05:29 09/02/20 05:37 Hydromorphone 1 Mg/Ml Injection IV 09/02/20 05:30 0.5 mg STAT ONE Administration Sodium Chloride Confirm 09/02/20 02:58 Sodium Chloride 0.9% 1000 Ml Administered 09/02/20 02:59 Dose 1,000 mls @ ud .ROUTE .STK-MED ONE Sodium Chloride 1,000 mls @ 999 mls/hr 09/02/20 03:13 09/02/20 03:14 Sodium Chloride 0.9% 1000 Ml IV 09/02/20 04:13 999 mls/hr .Q1H1M STA Administration Levofloxacin/Dextrose 500 mg in 100 mls @ 100 mls/hr 09/03/20 00:00 09/02/20 23:25 Levofloxacin 500mg/100ml D5w IV 09/03/20 00:59 100 mls/hr DAILY ROSALVA Administration Ondansetron HCl 4 mg 09/02/20 02:56 09/02/20 03:12 Zofran 4 Mg/2 Ml Vial IV 09/02/20 02:57 4 mg STAT ONE Administration Ondansetron HCl Confirm 09/02/20 02:56 Zofran 4 Mg/2 Ml Vial Administered 09/02/20 02:57 Dose 4 mg .ROUTE .STK-MED ONE Intake & Output (Last 24 hours) 08/31/20 09/01/20 09/02/20 09/03/20 11:59 11:59 11:59 11:59 Intake Total 0 2800 Output Total 1050 Balance 0 1750 Weight 70.18 kg Laboratory Results (Last 24 hours) 09/03/20 09/03/20 09/02/20 04:33 04:33 14:38 WBC 13.5 H RBC 4.33 Hgb 12.2 L Hct 38.6 L MCV 89.1 MCH 28.2 MCHC 31.6 L RDW 13.6 Plt Count 202 MPV 11.3 H Gran % 86.2 H Eos # (Auto) 0.17 Absolute Lymphs (auto) 0.75 L Absolute Monos (auto) 0.89 Lymphocytes % 5.6 L Monocytes % 6.6 Eosinophils % 1.3 Basophils % 0.3 Absolute Granulocytes 11.64 H Basophils # 0.04 Sodium 138 Potassium 4.2 Chloride 106 Carbon Dioxide 21 L Anion Gap 14.9 BUN 31 H Creatinine 1.30 H Estimated GFR 56.9 Glucose 105 Calcium 8.3 L D Total Bilirubin 1.10 AST 21 ALT 12 Alkaline Phosphatase 101 Troponin I < 0.012 Serum Total Protein 5.9 L Albumin 3.6 09/02/20 09/02/20 11:59 09:08 WBC RBC Hgb Hct MCV MCH MCHC RDW Plt Count MPV Gran % Eos # (Auto) Absolute Lymphs (auto) Absolute Monos (auto) Lymphocytes % Monocytes % Eosinophils % Basophils % Absolute Granulocytes Basophils # Sodium Potassium Chloride Carbon Dioxide Anion Gap BUN Creatinine Estimated GFR Glucose Calcium Total Bilirubin AST ALT Alkaline Phosphatase Troponin I < 0.012 < 0.012 Serum Total Protein Albumin Orders (Last 24 hours) Category Date Time Status Gastric Tube Insertion ROUTINE Care 09/02/20 20:35 Active ABDOMEN 2 VIEW Routine Exams 09/03/20 11:00 Stop Req CHEST 1 VIEW (PORTABLE) Stat Exams 09/02/20 23:42 Taken CBC W DIFF AM.LAB Lab 09/03/20 04:33 Completed CBC W DIFF AM.LAB Lab 09/04/20 04:00 Ordered CMP AM.LAB Lab 09/03/20 04:33 Completed TROPONIN Q3H Lab 09/02/20 09:08 Completed TROPONIN Q3H Lab 09/02/20 11:59 Completed TROPONIN Q3H Lab 09/02/20 14:38 Completed Levofloxacin [Levofloxacin 500MG/100ML D5W] Med 09/03/20 00:00 Discontinued 500 mg in 100 ml IV DAILY Levofloxacin [Levofloxacin 500MG/100ML D5W] Med 09/03/20 22:00 Active 500 mg in 100 ml IV Q24H22 Metronidazole 500 mg Premix [Flagyl 500 mg Ivpb] Med 09/03/20 00:00 Active 500 mg in 100 ml IV Q6HT Pantoprazole 40 mg [Protonix 40 mg IV] Med 09/02/20 10:00 Active 40 mg IV Q24H10 Patient Care Notes (Last 24 hours) 09/03/20 01:22 Nursing Note by Lois Renteria Notified Dr. Abarca that there were [address] a NG tube in pt. Last attempt xray confirmed that tube was not in the stomach. pt states that he has to have his esophagus dilated once a year and its been about a year since last done. Per Dr. Abarca he is recommending that patient be sent to [facility] to get NG and further treatment. Notified Dr. Yusuf he is wanting patient to remain NPO and will discuss with patient in the morning treatment plans. discussed with patient and patient agrees . Initialized on 09/03/20 01:22 - END OF NOTE 09/03/20 00:21 Nursing Note by Lois Renteria xray confirmed misplaced NG tube. 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 Initialized on 09/03/20 00:21 - END OF NOTE 09/02/20 09:57 Nursing Note by Eleni Guillen Surgery consult called to Rashida at [facility] Initialized on 09/02/20 09:57 - END OF NOTE Code(s): K56.609 - UNSP INTESTNL OBST, UNSP TO PARTIAL VERSUS COMPLETE OBST
--- NOTE | 2020-09-03 08:28 | PCM.NOTE ---
Date and Time: 09/03/20826 Subjective Assessment: last 24 hours events noted. - Review of Systems Constitutional: No Fever, No Chills Eyes: No Symptoms Ears, Nose, & Throat: No Symptoms Respiratory: No Cough, No Short Of Breath Cardiac: No Chest Pain, No Edema, No Syncope Abdominal/Gastrointestinal: Abdominal Pain, No Nausea, No Vomiting, No Diarrhea Genitourinary Symptoms: No Dysuria Musculoskeletal: No Back Pain, No Neck Pain Skin: No Rash Neurological: No Dizziness, No Focal Weakness, No Sensory Changes Psychological: No Symptoms Endocrine: No Symptoms Hematologic/Lymphatic: No Symptoms Immunological/Allergic: No Symptoms Objective Exam General Appearance: no apparent distress, alert Neurologic Exam: alert, oriented x 3, cooperative, normal mood/affect, nml cerebellar function, sensation nml, No motor deficits Skin Exam: normal color, warm, dry Eye Exam: PERRL, EOMI, eyes nml inspection Ears, Nose, Throat Exam: normal ENT inspection, pharynx normal, moist mucous membranes Neck Exam: normal inspection, non-tender, supple, full range of motion Respiratory Exam: normal breath sounds, lungs clear, No respiratory distress Cardiovascular Exam: regular rate/rhythm, normal heart sounds Gastrointestinal/Abdomen Exam: tenderness, guarding, No normal bowel sounds, No mass Extremity Exam: normal inspection, normal range of motion Back Exam: normal inspection, normal range of motion, No CVA tenderness, No vertebral tenderness Male Genitalia Exam: deferred Rectal Exam: deferred OBJECTIVE DATA Vital Signs: Vital Signs - 24 hr Temp Pulse Resp BP Pulse Ox 09/03/20 06:52 98.3 F 72 16 129/79 98 09/03/20 04:00 98.0 F 102 H 18 127/86 96 09/02/20 23:22 98.6 F 77 19 139/95 93 L 09/02/20 20:00 98.3 F 61 19 132/87 96 09/02/20 16:00 98.4 F 66 18 160/96 98 09/02/20 12:00 99.1 F 70 16 141/68 98 Pain Assessment - Last Documented Pain Intensity 6 Pain Scale Used 0-10 Pain Scale Intake and Output: Intake & Output 08/31/20 09/01/20 09/02/20 09/03/20 11:59 11:59 11:59 11:59 Intake Total 0 2800 Output Total 1050 Balance 0 1750 Weight 70.18 kg Lab Results: Lab Results-Last 24 Hours 09/02/20 09/02/20 09/02/20 Range/Units 09:08 11:59 14:38 WBC (4.0-10.5) K/mm3 RBC (4.1-5.6) M/mm3 Hgb (12.5-18.0) gm/dl Hct (42-50) % MCV (78-100) fl MCH (26-32) pg MCHC (32-36) g/dl RDW (11.5-14.0) % Plt Count (150-450) K/mm3 MPV (7.5-11.0) fl Gran % (36.0-66.0) % Eos # (Auto) (0-0.5) Absolute Lymphs (auto) (1.0-4.6) Absolute Monos (auto) (0.0-1.3) Lymphocytes % (24.0-44.0) % Monocytes % (0.0-12.0) % Eosinophils % (0.00-5.0) % Basophils % (0.0-0.4) % Absolute Granulocytes (1.4-6.9) Basophils # (0-0.4) Sodium (137-145) mmol/L Potassium (3.5-5.1) mmol/L Chloride (98-107) mmol/L Carbon Dioxide (22-30) mmol/L Anion Gap (5-15) MEQ/L BUN (9-20) mg/dL Creatinine (0.66-1.25) mg/dL Estimated GFR ML/MIN Glucose (74-106) mg/dL Calcium (8.4-10.2) mg/dL Total Bilirubin (0.2-1.3) mg/dL AST (17-59) U/L ALT (0-50) U/L Alkaline Phosphatase (38-126) U/L Troponin I < 0.012 < 0.012 < 0.012 (0.000-0.034) ng/mL Serum Total Protein (6.3-8.2) g/dL Albumin (3.5-5.0) g/dL 09/03/20 09/03/20 Range/Units 04:33 04:33 WBC 13.5 H (4.0-10.5) K/mm3 RBC 4.33 (4.1-5.6) M/mm3 Hgb 12.2 L (12.5-18.0) gm/dl Hct 38.6 L (42-50) % MCV 89.1 (78-100) fl MCH 28.2 (26-32) pg MCHC 31.6 L (32-36) g/dl RDW 13.6 (11.5-14.0) % Plt Count 202 (150-450) K/mm3 MPV 11.3 H (7.5-11.0) fl Gran % 86.2 H (36.0-66.0) % Eos # (Auto) 0.17 (0-0.5) Absolute Lymphs (auto) 0.75 L (1.0-4.6) Absolute Monos (auto) 0.89 (0.0-1.3) Lymphocytes % 5.6 L (24.0-44.0) % Monocytes % 6.6 (0.0-12.0) % Eosinophils % 1.3 (0.00-5.0) % Basophils % 0.3 (0.0-0.4) % Absolute Granulocytes 11.64 H (1.4-6.9) Basophils # 0.04 (0-0.4) Sodium 138 (137-145) mmol/L Potassium 4.2 (3.5-5.1) mmol/L Chloride 106 (98-107) mmol/L Carbon Dioxide 21 L (22-30) mmol/L Anion Gap 14.9 (5-15) MEQ/L BUN 31 H (9-20) mg/dL Creatinine 1.30 H (0.66-1.25) mg/dL Estimated GFR 56.9 ML/MIN Glucose 105 (74-106) mg/dL Calcium 8.3 L D (8.4-10.2) mg/dL Total Bilirubin 1.10 (0.2-1.3) mg/dL AST 21 (17-59) U/L ALT 12 (0-50) U/L Alkaline Phosphatase 101 (38-126) U/L Troponin I (0.000-0.034) ng/mL Serum Total Protein 5.9 L (6.3-8.2) g/dL Albumin 3.6 (3.5-5.0) g/dL Radiology Exams: Radiology Procedures Category Date Time Status ABDOMEN 2 VIEW Routine Exams 09/03/20 11:00 Stop Req ABDOMEN AND PELVIS W/0 CONTRAS [CT] Stat Exams 09/02/20 03:33 Completed CHEST 1 VIEW (PORTABLE) Stat Exams 09/02/20 23:42 Taken Assessment/Plan (1) SBO (small bowel obstruction) Current Visit: Yes Status: Acute Assessment & Plan: unable to pass NG tube Code(s): K56.609 - UNSP INTESTNL OBST, UNSP TO PARTIAL VERSUS COMPLETE OBST
--- NOTE | 2020-09-03 09:10 | XRAY ---
Indication: NG tube placement. Comparison: April 29, 2009. Portable chest demonstrates NG tube tip projecting over right lung base in the right lower lobe bronchus. Remaining heart and lungs unremarkable with stable distal right paratracheal calcified nodes. Bony thorax grossly intact. Comment: Preliminary interpretation was made by [facility]. No critical discrepancy.
[2020-09-03] MEDS: PROTONIX 40 MG IV IV SCH (10:01)
--- NOTE | 2020-09-03 12:23 | XRAY ---
Indication: Abdomen pain, bloating, and constipation. Obstruction. Multiple contiguous axial images obtained through the abdomen and pelvis without contrast. Comparison: September 02, 2020. Lung bases again demonstrates scattered subsegmental atelectasis/scarring. New right middle and right lower lobe hazy patchy groundglass airspace opacities without effusion. Heart not enlarged. Continued abnormal distended small bowel loops with asynchronous fluid leveling and transition point in the right lower quadrant favoring partial distal small bowel obstruction. Increasing small abdominal and pelvic free fluid. No walled off fluid collection or free air. Stable sigmoid diverticulosis, tiny hepatic cyst/hemangioma, splenic calcified granulomas, and mild aortoiliac calcifications. Remaining liver, gallbladder, pancreas, spleen, adrenal glands, kidneys, ureters, and bladder are unremarkable for noncontrast exam. Impression: 1. Again partial distal small bowel obstruction with increasing abdomen/pelvic free fluid. 2. New right middle and right lower lobe patchy groundglass airspace opacities. 3. Stable incidental sigmoid diverticulosis, hepatic cyst/hemangioma, and old granulomatous disease.
[2020-09-03 16:32] VITALS: BP 120/79; PULSE 70; O2SAT 97
--- NOTE | 2020-09-03 21:12 | PCM.DS ---
Discharge Summary Date of Admission: 09/02/20 07:51 Admitting Physician: ALEN DE PAZ Consults: Consults on Case 09/02/20 05:22 Consult Surgery ROUTINE Primary Care Provider: ALEN DE PAZ Allergies Allergies No Known Drug Allergies Allergy (Verified 09/02/20 08:32) Hospital Summary - Hospital Course Hospital Course: Chief Complaint Diagnosis Small Bowel Obstruction Admission Date Date 09/02/20 Allergies Allergy/AdvReac Type Severity Reaction Status Date / Time No Known Drug Allergies Allergy Verified 09/02/20 08:32 Vital Signs (Last 24 hours) Temp Pulse Resp BP Pulse Ox 09/03/20 16:00 98.3 F 70 18 120/79 97 09/03/20 12:00 98.9 F 75 16 139/88 95 09/03/20 06:52 98.3 F 72 16 129/79 98 09/03/20 04:00 98.0 F 102 H 18 127/86 96 09/02/20 23:22 98.6 F 77 19 139/95 93 L Home Medications Medication Instructions Recorded Confirmed Last Taken Type Acetaminophen 500 mg [Tylenol 1,000 mg PO Q6HPRN PRN 09/02/20 09/02/20 Unknown History Extra Strength 500 mg] Albuterol 2.5 mg/3 ml Neb 2.5 mg IH DAILY 09/02/20 09/02/20 09/02/20 History [Proventil 2.5 mg/3 ml Neb] 0800 PANTOPRAZOLE 40 mg Tablet 40 mg PO DAILY 09/02/20 09/02/20 09/01/20 History [Protonix 40MG Tablet] Saw [place] 320 mg PO BID 09/02/20 09/02/20 09/01/20 08:00 History Umeclidinium Brm/Vilanterol Tr 1 each IH DAILY 09/02/20 09/02/20 09/01/20 History [Anoro Ellipta 62.5-25 Mcg INH] 0800 lisinopriL [Lisinopril] 5 mg PO BID 09/02/20 09/02/20 08/31/20 History Current Medications Discontinued Medications Generic Name Dose Route Start Last Admin Trade Name Freq PRN Reason Stop Dose Admin Fentanyl Citrate 50 mcg 09/02/20 02:55 09/02/20 03:11 Sublimaze 100 Mcg/2 Ml IV 09/02/20 02:56 50 mcg STAT ONE Administration Fentanyl Citrate Confirm 09/02/20 02:58 Sublimaze 100 Mcg/2 Ml Administered 09/02/20 02:59 Dose 100 mcg .ROUTE .STK-MED ONE Hydromorphone HCl 0.5 mg 09/02/20 05:22 09/03/20 19:00 Hydromorphone 1 Mg/Ml Injection IV 09/07/20 05:21 0.5 mg Q4H PRN PRN Administration PAIN Hydromorphone HCl 0.5 mg 09/02/20 05:29 09/02/20 05:37 Hydromorphone 1 Mg/Ml Injection IV 09/02/20 05:30 0.5 mg STAT ONE Administration Sodium Chloride Confirm 09/02/20 02:58 Sodium Chloride 0.9% 1000 Ml Administered 09/02/20 02:59 Dose 1,000 mls @ ud .ROUTE .STK-MED ONE Sodium Chloride 1,000 mls @ 999 mls/hr 09/02/20 03:13 09/02/20 03:14 Sodium Chloride 0.9% 1000 Ml IV 09/02/20 04:13 999 mls/hr .Q1H1M STA Administration Sodium Chloride 1,000 mls @ 100 mls/hr 09/02/20 05:30 09/03/20 14:45 Sodium Chloride 0.9% 1000 Ml IV 10/02/20 05:29 100 mls/hr .Q10H ROSALVA Administration Metronidazole 500 mg in 100 mls @ 200 mls/hr 09/03/20 00:00 09/03/20 17:46 Flagyl 500 Mg Ivpb IV 10/03/20 00:00 200 mls/hr Q6HT ROSALVA Administration Levofloxacin/Dextrose 500 mg in 100 mls @ 100 mls/hr 09/03/20 00:00 09/02/20 23:25 Levofloxacin 500mg/100ml D5w IV 09/03/20 00:59 100 mls/hr DAILY ROSALVA Administration Levofloxacin/Dextrose 500 mg in 100 mls @ 100 mls/hr 09/03/20 22:00 Levofloxacin 500mg/100ml D5w IV 10/03/20 21:59 Q24H22 ROSALVA Ondansetron HCl 4 mg 09/02/20 02:56 09/02/20 03:12 Zofran 4 Mg/2 Ml Vial IV 09/02/20 02:57 4 mg STAT ONE Administration Ondansetron HCl Confirm 09/02/20 02:56 Zofran 4 Mg/2 Ml Vial Administered 09/02/20 02:57 Dose 4 mg .ROUTE .STK-MED ONE Ondansetron HCl 4 mg 09/02/20 05:22 09/03/20 07:31 Zofran 4 Mg/2 Ml Vial IV 10/02/20 05:21 4 mg Q6H PRN PRN Administration NAUSEA/VOMITING Ondansetron HCl 4 mg 09/03/20 12:45 09/03/20 18:59 Zofran 4 Mg/2 Ml Vial IV 10/03/20 12:40 4 mg Q4H PRN PRN Administration NAUSEA/VOMITING Pantoprazole Sodium 40 mg 09/02/20 10:00 09/03/20 10:01 Protonix 40 Mg Iv IV 10/02/20 09:59 40 mg Q24H10 ROSALVA Administration Intake & Output (Last 24 hours) 09/01/20 09/02/20 09/03/20 09/04/20 11:59 11:59 11:59 11:59 Intake Total 0 2800 0 Output Total 1250 450 Balance 0 1550 -450 Weight 70.18 kg Laboratory Results (Last 24 hours) 09/03/20 09/03/20 04:33 04:33 WBC 13.5 H RBC 4.33 Hgb 12.2 L Hct 38.6 L MCV 89.1 MCH 28.2 MCHC 31.6 L RDW 13.6 Plt Count 202 MPV 11.3 H Gran % 86.2 H Eos # (Auto) 0.17 Absolute Lymphs (auto) 0.75 L Absolute Monos (auto) 0.89 Lymphocytes % 5.6 L Monocytes % 6.6 Eosinophils % 1.3 Basophils % 0.3 Absolute Granulocytes 11.64 H Basophils # 0.04 Sodium 138 Potassium 4.2 Chloride 106 Carbon Dioxide 21 L Anion Gap 14.9 BUN 31 H Creatinine 1.30 H Estimated GFR 56.9 Glucose 105 Calcium 8.3 L D Total Bilirubin 1.10 AST 21 ALT 12 Alkaline Phosphatase 101 Serum Total Protein 5.9 L Albumin 3.6 Orders (Last 24 hours) Category Date Time Status Gastric Tube Insertion ROUTINE Care 09/02/20 20:35 Active Discharge Routine Discharge 09/03/20 Ordered Discharge/Telephone Order Routine Discharge 09/03/20 Active ABDOMEN AND PELVIS W/0 CONTRAS [CT] Urgent Exams 09/03/20 11:16 Completed CHEST 1 VIEW (PORTABLE) Stat Exams 09/02/20 23:42 Completed CBC W DIFF AM.LAB Lab 09/03/20 04:33 Completed CMP AM.LAB Lab 09/03/20 04:33 Completed Levofloxacin [Levofloxacin 500MG/100ML D5W] Med 09/03/20 00:00 Discontinued 500 mg in 100 ml IV DAILY Levofloxacin [Levofloxacin 500MG/100ML D5W] Med 09/03/20 22:00 Discontinued 500 mg in 100 ml IV Q24H22 Metronidazole 500 mg Premix [Flagyl 500 mg Ivpb] Med 09/03/20 00:00 Discontinued 500 mg in 100 ml IV Q6HT Ondansetron HCl 4 mg/2 ml [Zofran 4 MG/2 ML VIAL] Med 09/03/20 12:45 Discontinued 4 mg IV Q4H PRN PRN Patient Care Notes (Last 24 hours) 09/03/20 18:33 Nursing Note by Rachell Muhammad [facility] called with a bed for pt . room [id number] Initialized on 09/03/20 18:33 - END OF NOTE 09/03/20 18:29 Nursing Note by MADELYN SOLITARIO DR. CALLED TO GET AN UPDATE ON PT AND TO SEE WHEN PT WILL BE TRANSFERRED TO [facility]. UPDATE GIVEN AND DR. ABARCA STATED HE WOULD SEE PT TONIGHT AT [facility] OR TOMORROW MORNING AT [facility]. Initialized on 09/03/20 18:29 - END OF NOTE 09/03/20 16:42 (created 09/03/20 17:53) Nursing Note by Rachell Muhammad [facility] transfer center was contacted again regarding pt's transfer. I was told that there was a discharge and that bed would be held for pt and as soon as the room was clean they would call back with information Initialized on 09/03/20 17:53 - END OF NOTE 09/03/20 12:46 Nursing Note by Mariola Moreland called results of ct abd/pelvis to dr. blount office. dr abarca ok with transfer. dr de paz notified and states to transfer pt to [facility] Initialized on 09/03/20 12:46 - END OF NOTE 09/03/20 11:43 Nursing Note by Mariola Moreland pt walked 750ft with stand by assist only Initialized on 09/03/20 11:43 - END OF NOTE 09/03/20 11:17 Case Management Note by Lorna Celaya PATIENT STILL ACUTELY ILL- DENIED ANY NEEDS AT [facility] ON UPON ADMISSION. NO NEW NEEDS IDENTIFIED AT THIS TIME. Initialized on 09/03/20 11:17 - END OF NOTE 09/03/20 11:15 Nursing Note by Mariola Moreland dr states that if dr de paz thinks pt is still obstructed then the NG needs placed. if he doesn't think the pt is obstructed then pt doesn't need NG. reported to dr. de paz. new order for ct abd/pelvis ordered Initialized on 09/03/20 11:15 - END OF NOTE 09/03/20 09:20 Nursing Note by Mariola Moreland dr wants me to call dr. abarca to see if he still wants pt to have NG tube since pt is no longer vomiting and placement was unable to be obtained last night. if so dr gavin states we will have to do it by ultra sound guided by radiology. left message for dr. blount nurse Moraima regarding the above. will await a call back Initialized on 09/03/20 09:20 - END OF NOTE 09/03/20 01:22 Nursing Note by Lois Renteria Notified Dr. Aabrca that there were [address] a NG tube in pt. Last attempt xray confirmed that tube was not in the stomach. pt states that he has to have his esophagus dilated once a year and its been about a year since last done. Per Dr. Abarca he is recommending that patient be sent to [facility] to get NG and further treatment. Notified Dr. De Paz he is wanting patient to remain NPO and will discuss with patient in the morning treatment plans. discussed with patient and patient agrees . Initialized on 09/03/20 01:22 - END OF NOTE 09/03/20 00:21 Nursing Note by Lois Renteria confirmed misplaced NG tube. 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 Initialized on 09/03/20 00:21 - END OF NOTE CT abdomen showed worsening of Bowel obstruction.Dr Russo advised paient to be transferred. - Vitals & Intake/Output Vital Signs: Vital Signs Temperature 98.3 F 09/03/20 16:00 Pulse Rate 70 09/03/20 16:00 Respiratory Rate 18 09/03/20 16:00 Blood Pressure 120/79 09/03/20 16:00 O2 Sat by Pulse Oximetry 97 09/03/20 16:00 Intake & Output: Intake & Output 09/01/20 09/02/20 09/03/20 09/04/20 11:59 11:59 11:59 11:59 Intake Total 0 2800 0 Output Total 1250 450 Balance 0 1550 -450 Weight 70.18 kg - Lab Result Diagrams: 09/03/20 04:33 09/03/20 04:33 Lab Results-Last 24 Hrs: Lab Results-Last 24 Hours 09/03/20 09/03/20 Range/Units 04:33 04:33 WBC 13.5 H (4.0-10.5) K/mm3 RBC 4.33 (4.1-5.6) M/mm3 Hgb 12.2 L (12.5-18.0) gm/dl Hct 38.6 L (42-50) % MCV 89.1 (78-100) fl MCH 28.2 (26-32) pg MCHC 31.6 L (32-36) g/dl RDW 13.6 (11.5-14.0) % Plt Count 202 (150-450) K/mm3 MPV 11.3 H (7.5-11.0) fl Gran % 86.2 H (36.0-66.0) % Eos # (Auto) 0.17 (0-0.5) Absolute Lymphs (auto) 0.75 L (1.0-4.6) Absolute Monos (auto) 0.89 (0.0-1.3) Lymphocytes % 5.6 L (24.0-44.0) % Monocytes % 6.6 (0.0-12.0) % Eosinophils % 1.3 (0.00-5.0) % Basophils % 0.3 (0.0-0.4) % Absolute Granulocytes 11.64 H (1.4-6.9) Basophils # 0.04 (0-0.4) Sodium 138 (137-145) mmol/L Potassium 4.2 (3.5-5.1) mmol/L Chloride 106 (98-107) mmol/L Carbon Dioxide 21 L (22-30) mmol/L Anion Gap 14.9 (5-15) MEQ/L BUN 31 H (9-20) mg/dL Creatinine 1.30 H (0.66-1.25) mg/dL Estimated GFR 56.9 ML/MIN Glucose 105 (74-106) mg/dL Calcium 8.3 L D (8.4-10.2) mg/dL Total Bilirubin 1.10 (0.2-1.3) mg/dL AST 21 (17-59) U/L ALT 12 (0-50) U/L Alkaline Phosphatase 101 (38-126) U/L Serum Total Protein 5.9 L (6.3-8.2) g/dL Albumin 3.6 (3.5-5.0) g/dL - Radiology Exams Ordered Rad Exams-Entire Visit: Radiology Procedures Category Date Time Status ABDOMEN AND PELVIS W/0 CONTRAS [CT] Stat Exams 09/02/20 03:33 Completed ABDOMEN AND PELVIS W/0 CONTRAS [CT] Urgent Exams 09/03/20 11:16 Completed CHEST 1 VIEW (PORTABLE) Stat Exams 09/02/20 23:42 Completed Discharge Exam General Appearance: no apparent distress, alert Neurologic Exam: alert, oriented x 3, cooperative, normal mood/affect, nml cerebellar function, sensation nml, No motor deficits Eye Exam: PERRL, EOMI, eyes nml inspection Ears, Nose, Throat Exam: normal ENT inspection, pharynx normal, moist mucous membranes Neck Exam: normal inspection, non-tender, supple, full range of motion Respiratory Exam: crackles/rales, rhonchi, No respiratory distress Cardiovascular Exam: regular rate/rhythm, normal heart sounds Gastrointestinal/Abdomen Exam: normal bowel sounds, tenderness, No mass Male Genitalia Exam: deferred Rectal Exam: deferred Back Exam: normal inspection, normal range of motion, No CVA tenderness, No vertebral tenderness Extremity Exam: normal inspection, normal range of motion Skin Exam: normal color, warm, dry Final Diagnosis/Problem List - Final Discharge Diagnosis/Problem (1) SBO (small bowel obstruction) Status: Acute Assessment & Plan: Last Vital Signs Temp 98.3 F 09/03/20 16:00 Pulse 70 09/03/20 16:00 Resp 18 09/03/20 16:00 BP 120/79 09/03/20 16:00 Pulse Ox 97 09/03/20 16:00 Allergies No Known Drug Allergies Allergy (Verified 09/02/20 08:32) Intake & Output 09/03/20 09/04/20 11:59 11:59 Intake Total 2800 0 Output Total 1250 450 Balance 1550 -450 Orders 09/03/20 Discharge Routine Discharge/Telephone Order Routine Lab Tests 09/03/20 09/03/20 04:33 04:33 WBC 13.5 H RBC 4.33 Hgb 12.2 L Hct 38.6 L MCV 89.1 MCH 28.2 MCHC 31.6 L RDW 13.6 Plt Count 202 MPV 11.3 H Gran % 86.2 H Eos # (Auto) 0.17 Absolute Lymphs (auto) 0.75 L Absolute Monos (auto) 0.89 Lymphocytes % 5.6 L Monocytes % 6.6 Eosinophils % 1.3 Basophils % 0.3 Absolute Granulocytes 11.64 H Basophils # 0.04 Sodium 138 Potassium 4.2 Chloride 106 Carbon Dioxide 21 L Anion Gap 14.9 BUN 31 H Creatinine 1.30 H Estimated GFR 56.9 Glucose 105 Calcium 8.3 L D Total Bilirubin 1.10 AST 21 ALT 12 Alkaline Phosphatase 101 Serum Total Protein 5.9 L Albumin 3.6 Code(s): K56.609 - UNSP INTESTNL OBST, UNSP TO PARTIAL VERSUS COMPLETE OBST (2) Pneumonia Status: Acute Code(s): J18.9 - PNEUMONIA, UNSPECIFIED ORGANISM - Discharge Discharge Date: 09/03/20 [facility] Condition: Stable Prescriptions: No Action lisinopriL [Lisinopril] 5 mg PO BID PANTOPRAZOLE 40 mg Tablet [Protonix 40MG Tablet] 40 mg PO DAILY Umeclidinium Brm/Vilanterol Tr [Anoro Ellipta 62.5-25 Mcg INH] 1 each IH DAILY Albuterol 2.5 mg/3 ml Neb [Proventil 2.5 mg/3 ml Neb] 2.5 mg IH DAILY Acetaminophen 500 mg [Tylenol Extra Strength 500 mg] 1,000 mg PO Q6HPRN PRN PRN Reason: Pain Saw [place] 320 mg PO BID Follow up with: ALEN DE PAZ MD [Primary Care Provider] - Forms: Ambulance Transport Record, Transfer Record Inter-Agency
[2020-09-03] MEDS ORDERED: Levofloxacin 500MG/100ML D5W 500 MG/100 ML BAG IV SCH ×2 (22:00)
== END 2020-09-03 19:05 | disposition short-term general hospital (02) ==
LOC: ED 02:26 → ICU 07:51
PROVIDERS: ADMIT General Practice; ATTEND General Practice
DX: K56.609 Unspecified intestinal obstruction, unspecified as to partial versus complete obstruction (principal); J18.9 Pneumonia, unspecified organism; R11.2 Nausea with vomiting, unspecified; Z79.899 Other long term (current) drug therapy; J44.9 Chronic obstructive pulmonary disease, unspecified; I10 Essential (primary) hypertension
CPT/HCPCS: 0241U; 36415; 71045; 74176; 80053; 81001; 82150; 83605; 83690; 84484; 85025; 93005; 93041; 96360; 96374; 96375; 99285; G0378; J1170; J1956; J2405; J3010

== ENCOUNTER 2020-10-22 13:01 | Day surgery (SDC) | payer MEDICARE ==
[2020-10-22] MEDS ORDERED: LIDOCAINE HCL 2% 100 MG/5 ML IJ ONE (13:02)
[2020-10-22] MEDS ORDERED: Decadron 4 MG INJ IV ONE (13:02)
[2020-10-22] MEDS ORDERED: DIPRIVAN 200 MG/20 ML IV ONE (14:31)
--- NOTE | 2020-10-22 14:59 | XRAY ---
Indication: Left C2-C4 MBB. Intraoperative fluoroscopy provided for 13 seconds. 2 digital spot images submitted for interpretation demonstrates posterior needle tips projecting over the expected left C2-C4 nerve roots. Correlate with intraoperative findings/report.
--- NOTE | 2020-10-22 15:21 | XRAY ---
13 seconds fluoroscopy time in surgery for left C2-C4 MBB.
[2020-10-22] MEDS ORDERED: Lactated Ringers 1,000 ML IV ONE (15:35)
== END 2020-10-22 14:55 | disposition home or self-care (01) ==
LOC: SDC-PAIN 13:01
PROVIDERS: ATTEND Psychiatry & Neurology Pain Medicine
DX: M47.812 Spondylosis without myelopathy or radiculopathy, cervical region (principal); I10 Essential (primary) hypertension; K21.9 Gastro-esophageal reflux disease without esophagitis; Z79.899 Other long term (current) drug therapy
CPT/HCPCS: 64490; 64491; 72040; 77002; J1100; J2704

== ENCOUNTER 2020-12-17 09:17 | Day surgery (SDC) | payer MEDICARE ==
[2020-12-17] MEDS ORDERED: Decadron 4 MG INJ IV ONE (09:18)
[2020-12-17] MEDS ORDERED: BUPIVACAINE 0.5% VIAL IJ ONE (09:18)
[2020-12-17] MEDS ORDERED: Xylocaine 1% Vial 30 ML PF IJ ONE (09:18)
[2020-12-17] MEDS ORDERED: Lactated Ringers 1,000 ML IV ONE (11:24)
--- NOTE | 2020-12-17 13:57 | XRAY ---
22 seconds fluoroscopy time in surgery for right C2-C4 RFA.
--- NOTE | 2020-12-17 13:58 | XRAY ---
Indication: Right C2-C4 RFA. Intraoperative fluoroscopy provided for 22 seconds. 2 digital spot image submitted for interpretation demonstrates posterior needle tips projecting over the expected right C2-C4 nerve roots. Correlate with intraoperative findings/report.
== END 2020-12-17 12:11 | disposition home or self-care (01) ==
LOC: SDC-PAIN 09:17
PROVIDERS: ATTEND Psychiatry & Neurology Pain Medicine
DX: M47.812 Spondylosis without myelopathy or radiculopathy, cervical region (principal); Z79.899 Other long term (current) drug therapy
CPT/HCPCS: 64633; 64634; 72040; 77002; 99100; J1100; J2001

== ENCOUNTER 2021-10-21 07:45 | Day surgery (SDC) | payer MEDICARE ==
[2021-10-21] MEDS ORDERED: Depo-Medrol 40 MG/ML IM ONE (07:46)
[2021-10-21] MEDS ORDERED: LIDOCAINE HCL 2% 100 MG/5 ML IJ ONE (07:46)
[2021-10-21] MEDS ORDERED: DIPRIVAN 200 MG/20 ML IV ONE (08:54)
[2021-10-21] MEDS ORDERED: Lactated Ringers 1,000 ML IV ONE (10:15)
--- NOTE | 2021-10-21 10:51 | XRAY ---
Indication: Bilateral L4-S1 MBB. Intraoperative fluoroscopy provided for 8 seconds. Single digital spot image submitted for interpretation demonstrates posterior needle tips projecting over the expected left and right L4-S1 nerve roots. Correlate with intraoperative findings/report.
--- NOTE | 2021-10-21 11:36 | XRAY ---
8 seconds fluoroscopy time in surgery for bilateral L4-S1 MBB.
== END 2021-10-21 09:12 | disposition home or self-care (01) ==
LOC: SDC-PAIN 07:45
PROVIDERS: ATTEND Psychiatry & Neurology Pain Medicine
DX: M47.816 Spondylosis without myelopathy or radiculopathy, lumbar region (principal); Z79.899 Other long term (current) drug therapy
CPT/HCPCS: 64493; 64494; 72020; 77002; J1030; J2704

== ENCOUNTER 2022-01-20 11:14 | Day surgery (SDC) | payer MEDICARE ==
[2022-01-20] MEDS ORDERED: Marcaine Mpf 0.5% Vial 30 Ml IJ ONE (11:15)
[2022-01-20] MEDS ORDERED: Depo-Medrol 40 MG/ML IM ONE (11:15)
[2022-01-20] MEDS ORDERED: DIPRIVAN 200 MG/20 ML IV ONE (13:44)
[2022-01-20] MEDS ORDERED: Lactated Ringers 1,000 ML IV ONE (14:23)
--- NOTE | 2022-01-20 14:36 | XRAY ---
Indication: Bilateral L4-S1 MBB. Intraoperative fluoroscopy provided for 13 seconds. Single digital spot image submitted for interpretation demonstrates posterior needle tips projecting over the expected left and right L4-S1 nerve roots. Correlate with intraoperative findings/report.
--- NOTE | 2022-01-20 15:13 | XRAY ---
13 seconds fluoroscopy time in surgery for bilateral L4-S1 MBB.
== END 2022-01-20 14:05 | disposition home or self-care (01) ==
LOC: SDC-PAIN 11:14
PROVIDERS: ATTEND Psychiatry & Neurology Pain Medicine
DX: M47.816 Spondylosis without myelopathy or radiculopathy, lumbar region (principal); Z79.899 Other long term (current) drug therapy
CPT/HCPCS: 64493; 64494; 72020; 77002; J1030; J2704

== ENCOUNTER 2022-02-24 11:54 | Day surgery (SDC) | payer MEDICARE ==
[2022-02-24] MEDS ORDERED: Xylocaine 1% Vial 30 ML PF IJ ONE (11:55)
[2022-02-24] MEDS ORDERED: Depo-Medrol 40 MG/ML IM ONE (11:55)
[2022-02-24] MEDS ORDERED: BUPIVACAINE 0.5% VIAL IJ ONE (11:55)
[2022-02-24] MEDS ORDERED: DIPRIVAN 200 MG/20 ML IV ONE (14:17)
--- NOTE | 2022-02-24 16:31 | XRAY ---
Indication: Right L4-S1 RFA. Intraoperative fluoroscopy provided for 20 seconds. 3 digital spot image submitted for interpretation demonstrates posterior needle tips projecting over the expected L4-S1 nerve roots. Correlate with intraoperative findings/report.
[2022-02-24] MEDS ORDERED: Lactated Ringers 1,000 ML IV ONE (16:37)
--- NOTE | 2022-02-24 16:43 | XRAY ---
20 seconds of fluoroscopy was used in surgery for a right L4-S1 RFA.
== END 2022-02-24 14:45 | disposition home or self-care (01) ==
LOC: SDC-PAIN 11:54
PROVIDERS: ATTEND Psychiatry & Neurology Pain Medicine
DX: M47.816 Spondylosis without myelopathy or radiculopathy, lumbar region (principal); Z79.899 Other long term (current) drug therapy
CPT/HCPCS: 64635; 64636; 72100; 77002; 99100; J1030; J2001; J2704

== ENCOUNTER 2022-03-03 07:52 | Day surgery (SDC) | payer MEDICARE ==
[2022-03-03] MEDS ORDERED: Depo-Medrol 40 MG/ML IM ONE (07:53)
[2022-03-03] MEDS ORDERED: BUPIVACAINE 0.5% VIAL IJ ONE (07:53)
[2022-03-03] MEDS ORDERED: Xylocaine 1% Vial 30 ML PF IJ ONE (07:53)
[2022-03-03] MEDS ORDERED: DIPRIVAN 200 MG/20 ML IV ONE (09:15)
--- NOTE | 2022-03-03 10:28 | XRAY ---
Indication: Left L4-S1 RFA. Intraoperative fluoroscopy provided for 21 seconds. 3 digital spot image submitted for interpretation demonstrates posterior needle tips projecting over the expected left L4-S1 nerve roots. Correlate with intraoperative findings/report.
--- NOTE | 2022-03-03 10:59 | XRAY ---
21 seconds of fluoroscopy time used in surgery for left L4-S1 RFA.
[2022-03-03] MEDS ORDERED: Lactated Ringers 1,000 ML IV ONE (11:50)
== END 2022-03-03 09:55 | disposition home or self-care (01) ==
LOC: SDC-PAIN 07:52
PROVIDERS: ATTEND Psychiatry & Neurology Pain Medicine
DX: M47.816 Spondylosis without myelopathy or radiculopathy, lumbar region (principal); Z79.899 Other long term (current) drug therapy; Z79.01 Long term (current) use of anticoagulants
CPT/HCPCS: 64635; 64636; 72100; 77002; 99100; J1030; J2001; J2704

== ENCOUNTER 2022-12-22 11:05 | Day surgery (SDC) | payer MEDICARE ==
[2022-12-22] MEDS ORDERED: Depo-Medrol 40 MG/ML IM ONE (11:06)
[2022-12-22] MEDS ORDERED: LIDOCAINE HCL 1% 50 MG/5 ML VL PF IJ ONE (11:06)
[2022-12-22] MEDS ORDERED: BUPIVACAINE 0.5% VIAL IJ ONE (11:06)
[2022-12-22] MEDS ORDERED: DIPRIVAN 200 MG/20 ML IV ONE (12:38)
[2022-12-22] MEDS ORDERED: Lactated Ringers 1,000 ML IV ONE (14:36)
--- NOTE | 2022-12-22 14:44 | XRAY ---
Indication: Right L4-S1 RFA. Intraoperative fluoroscopy provided for 22 seconds. 4 digital spot image submitted for interpretation demonstrates posterior needle tips projecting over the expected right L4-S1 nerve roots. Correlate with intraoperative findings
--- NOTE | 2022-12-22 16:46 | XRAY ---
22 seconds of fluoroscopy was used in surgery for a right L4-S1 RFA.
== END 2022-12-22 13:05 | disposition home or self-care (01) ==
LOC: SDC-PAIN 11:05
PROVIDERS: ATTEND Psychiatry & Neurology Pain Medicine
DX: M47.816 Spondylosis without myelopathy or radiculopathy, lumbar region (principal); Z79.899 Other long term (current) drug therapy
CPT/HCPCS: 64635; 64636; 72100; 77002; 99100; J1030; J2001; J2704